=== PATIENT | female | born 1995 | race African-American/Black ===

== ENCOUNTER 2021-11-04 12:17 | Inpatient (IN) | payer MEDICAID ==
[~2021-11-04] VITALS: Ht 162.6 cm; Wt 74.4 kg
[2021-11-04] MEDS ORDERED: DEXT 5%/LR + PITOCIN 20UNITS/L 1,000 ML IV SCH (14:15)
[2021-11-04] MEDS ORDERED: CITRIC ACID/SODIUM CITRATE SOLN 30ML UDC PO SCH (14:15)
[2021-11-04] MEDS ORDERED: METHYLERGONOVINE MALEATE 0.2 MG/ML IM PRN (14:15)
[2021-11-04] MEDS ORDERED: CARBOPROST TROMETHAMINE 250 MCG/ML AMPUL IM PRN (14:15)
[2021-11-04] MEDS ORDERED: NALOXONE HCL 0.4 MG/ML 1ML VIAL IM PRN (14:15)
[2021-11-04] MEDS: LACTATED RINGERS 1,000 ML IV SCH ×2 (14:17→17:05)
[2021-11-04 14:40] LABS: CLARITY URINE CLOUDY (CLEAR); COLOR URINE YELLOW (YELLOW); KETONES URINE NEGATIVE (NEGATIVE); LEUKOCYTE ESTERASE URINE 3+ (NEGATIVE); NITRITE URINE NEGATIVE (NEGATIVE); OCCULT BLOOD URINE NEGATIVE (NEGATIVE); PH URINE 7.5 (4.5-8.0); PROTEIN URINE 1+ (NEGATIVE); SPECIFIC GRAVITY URINE 1.019 (1.005-1.030)
[2021-11-04 14:45] LABS: BASOPHILS % 0.2 % (0.0-2.0); EOSINOPHILS % 1.9 % (0.0-5.0); HEMATOCRIT. 32.3 % (36.0-48.0); HEMOGLOBIN. 10.6 g/dL (12.0-16.0); LYMPHOCYTES % 20.5 % (20.0-50.0); MEAN CORPUSCULAR HEMOGLOBIN 26.1 pg (28.0-32.0); MEAN CORPUSCULAR VOLUME 79.9 fL (81.0-99.0); MEAN PLATELET VOLUME 10.3 fl (7.4-10.4); NEUTROPHILS % 68.4 % (40.0-76.0); PLATELET 151 x1000/uL (130-400); RED BLOOD CELL COUNT 4.05 mill/uL (4.2-5.4)
[2021-11-04 15:10] LABS: PARTIAL THROMBOPLASTIN TIME 29.5 sec (23.4-31.0); PROTHROMBIN TIME 10.5 sec (9.6-11.0)
[2021-11-04 15:15] LABS: HEPATITIS B SURFACE ANTIGEN NEGATIVE
[2021-11-04 15:25] LABS: *BENZODIAZEPINES SCREEN URINE NEGATIVE (NEGATIVE); *COCAINE SCREEN URINE NEGATIVE (NEGATIVE); CANNABINOID URINE SCREEN NEGATIVE (NEGATIVE)
[2021-11-04 15:26] LABS: *AMPHETAMINES SCREEN URINE NEGATIVE (NEGATIVE); OPIATES URINE SCREEN NEGATIVE (NEGATIVE)
[2021-11-04 15:28] LABS: PHENCYCLIDINE URINE SCREEN NEGATIVE (NEGATIVE)
[2021-11-04] MEDS ORDERED: MORPHINE SULFATE/PF 1MG/ML 10ML AMP ONE (17:01)
[2021-11-04] MEDS ORDERED: KETOROLAC 60MG/2ML VIAL IM ONE (17:15)
[2021-11-04] MEDS ORDERED: CEFAZOLIN SODIUM 1000MG/VIAL ONE (17:15)
[2021-11-04] MEDS ORDERED: ONDANSETRON HCL 4MG/2ML INJ ONE (17:15)
[2021-11-04] MEDS ORDERED: DEXAMETHASONE 4MG/ML 1ML VIAL ONE (17:15)
[2021-11-04] MEDS ORDERED: EPHEDRINE SULFATE 50MG/ML VIAL ONE (17:15)
[2021-11-04] MEDS ORDERED: OXYTOCIN 10 UNITS/ML 1ML ONE ×2 (17:15→17:55)
[2021-11-04] MEDS ORDERED: NALOXONE HCL 0.4 MG/ML 1ML VIAL IV PRN (17:45)
[2021-11-04] MEDS ORDERED: PHENYLEPHRINE HCL 10 MG/ML 1ML (IV VIAL) IV ONE (17:50)
[2021-11-04 20:00] VITALS: BP 107/46
[2021-11-04] MEDS: KETOROLAC 30MG/ML VIAL IV SCH (20:26)
[2021-11-05] VITALS: BP 98/46
[2021-11-05 04:00] VITALS: BP 93/36
[2021-11-05] MEDS: KETOROLAC 30MG/ML VIAL IV SCH (04:15)
[2021-11-05 08:00] VITALS: BP 91/42
[2021-11-05] MEDS ORDERED: ONDANSETRON HCL 4MG/2ML INJ IV PRN (08:15)
[2021-11-05] MEDS ORDERED: DIPHENHYDRAMINE 25MG CAPSULE PO PRN (08:15)
[2021-11-05] MEDS ORDERED: HEMORRHOIDAL SUPP PR PRN (08:15)
[2021-11-05] MEDS ORDERED: IBUPROFEN 400MG TABLET PO PRN (08:15)
[2021-11-05] MEDS ORDERED: LANOLIN OINT 7GM TUBE TOP PRN (08:15)
[2021-11-05] MEDS ORDERED: DEXT 5%/LR + PITOCIN 20UNITS/L 1,000 ML IV SCH (08:15)
[2021-11-05 10:06] LABS: BASOPHILS % 0.1 % (0.0-2.0); EOSINOPHILS % 0.6 % (0.0-5.0); HEMATOCRIT. 27.2 % (36.0-48.0); HEMOGLOBIN. 8.9 g/dL (12.0-16.0); LYMPHOCYTES % 11.3 % (20.0-50.0); MEAN CORPUSCULAR HEMOGLOBIN 26.2 pg (28.0-32.0); MEAN CORPUSCULAR VOLUME 79.8 fL (81.0-99.0); MEAN PLATELET VOLUME 10.1 fl (7.4-10.4); MONOCYTES % 9.6 % (2.0-8.0); NEUTROPHILS % 78.4 % (40.0-76.0); PLATELET 136 x1000/uL (130-400); RED CELL DISTRIBUTION WIDTH 15.7 % (11.6-14.6)
[2021-11-05] MEDS: PRENATAL VIT/FE FUMARATE/FA TABLET PO SCH (15:10)
[2021-11-05] MEDS: IBUPROFEN 800MG TABLET PO PRN (15:10)
[2021-11-05 16:24] VITALS: BP 106/55
[2021-11-05 20:00] VITALS: BP 112/69
[2021-11-05] MEDS: MAGNESIUM/ALUMINUM HYDROXIDE/SIMETHICONE 30ML UDC PO SCH (21:28)
[2021-11-05] MEDS: DOCUSATE SODIUM 100MG CAPSULE PO SCH (21:29)
[2021-11-05] MEDS: SIMETHICONE 80MG TABLET CHEW PO SCH (21:29)
[2021-11-05] MEDS: HYDROCODONE/ACETAMINOPHEN 5/325MG TABLET PO PRN (21:29)
[2021-11-05] MEDS: BISACODYL 10MG SUPP PR PRN (21:29)
[2021-11-06 00:35] VITALS: BP 110/70
[2021-11-06] MEDS: HYDROCODONE/ACETAMINOPHEN 5/325MG TABLET PO PRN ×5 (02:02→20:15)
[2021-11-06 04:00] VITALS: BP 114/49
[2021-11-06] MEDS: MAGNESIUM/ALUMINUM HYDROXIDE/SIMETHICONE 30ML UDC PO SCH ×4 (07:30→20:15)
[2021-11-06] MEDS: SIMETHICONE 80MG TABLET CHEW PO SCH ×4 (08:00→20:15)
[2021-11-06 08:15] VITALS: BP 99/53
[2021-11-06] MEDS: FERROUS SULFATE 325MG TABLET PO SCH ×3 (09:21→17:30)
[2021-11-06] MEDS: PRENATAL VIT/FE FUMARATE/FA TABLET PO SCH (09:21)
[2021-11-06 12:13] LABS: *BARBITURATES SCREEN URINE NEGATIVE (NEGATIVE); METHADONE URINE SCREEN NEGATIVE (NEGATIVE)
[2021-11-06 16:05] VITALS: BP 109/65
[2021-11-06 20:00] VITALS: BP 114/50
[2021-11-06] MEDS: DOCUSATE SODIUM 100MG CAPSULE PO SCH (20:15)
[2021-11-06] MEDS: BISACODYL 10MG SUPP PR PRN (20:22)
[2021-11-07] VITALS: BP 112/52
[2021-11-07] MEDS: HYDROCODONE/ACETAMINOPHEN 5/325MG TABLET PO PRN ×2 (02:28→12:37)
[2021-11-07 04:05] VITALS: BP 115/63
[2021-11-07] MEDS: MAGNESIUM/ALUMINUM HYDROXIDE/SIMETHICONE 30ML UDC PO SCH ×3 (07:30→20:48)
[2021-11-07 07:37] LABS: BASOPHILS % 0.3 % (0.0-2.0); HEMATOCRIT. 28.9 % (36.0-48.0); HEMOGLOBIN. 9.7 g/dL (12.0-16.0); LYMPHOCYTES % 20.2 % (20.0-50.0); MEAN CORPUSCULAR HEMOGLOBIN 26.8 pg (28.0-32.0); MEAN CORPUSCULAR VOLUME 79.6 fL (81.0-99.0); MEAN PLATELET VOLUME 10.4 fl (7.4-10.4); MONOCYTES % 11.4 % (2.0-8.0); NEUTROPHILS % 65.1 % (40.0-76.0); PLATELET 159 x1000/uL (130-400); RED BLOOD CELL COUNT 3.63 mill/uL (4.2-5.4); RED CELL DISTRIBUTION WIDTH 15.8 % (11.6-14.6)
[2021-11-07 08:00] VITALS: BP 119/45
[2021-11-07] MEDS: SIMETHICONE 80MG TABLET CHEW PO SCH ×4 (08:00→20:48)
[2021-11-07] MEDS: PRENATAL VIT/FE FUMARATE/FA TABLET PO SCH (08:15)
[2021-11-07] MEDS: FERROUS SULFATE 325MG TABLET PO SCH ×3 (08:15→17:46)
[2021-11-07] MEDS: IBUPROFEN 800MG TABLET PO PRN ×2 (08:15→17:46)
[2021-11-07 15:30] VITALS: BP 109/45
[2021-11-07 20:00] VITALS: BP 113/49
[2021-11-07] MEDS: DOCUSATE SODIUM 100MG CAPSULE PO SCH (20:48)
[2021-11-08 03:30] VITALS: BP 114/52
[2021-11-08] MEDS ORDERED: MULT-1146 MT (03:54)
[2021-11-08] MEDS ORDERED: IBUP-2030 PO (03:54)
[2021-11-08] MEDS ORDERED: FERR-63 PO (03:54)
[2021-11-08 07:41] VITALS: BP 105/54
[2021-11-08] MEDS: SIMETHICONE 80MG TABLET CHEW PO SCH (09:14)
[2021-11-08] MEDS: FERROUS SULFATE 325MG TABLET PO SCH (09:15)
[2021-11-08] MEDS: PRENATAL VIT/FE FUMARATE/FA TABLET PO SCH (09:15)
[2021-11-08] MEDS: MAGNESIUM/ALUMINUM HYDROXIDE/SIMETHICONE 30ML UDC PO SCH (09:15)
[2021-11-08] MEDS: IBUPROFEN 800MG TABLET PO PRN (09:15)
== END 2021-11-08 13:15 | disposition home or self-care (01) | DRG 540 ==
LOC: 8 EST LDRP 12:17 → OBSVTOIN 12:18 → 8 EST LDRP 13:26 → 8EST 20:00
PROVIDERS: ADMIT Obstetrics & Gynecology; ATTEND Obstetrics & Gynecology
PROC: 10D00Z1 Extraction of Products of Conception, Low, Open Approach (ICD-10-PCS; principal; 2021-11-04)
DX: O34.211 Maternal care for low transverse scar from previous cesarean delivery (principal); Z20.822 Contact with and (suspected) exposure to COVID-19; Z37.0 Single live birth; Z3A.39 39 weeks gestation of pregnancy
CPT/HCPCS: 36415; 80305; 81003; 85025; 86592; 86593; 86703; 86762; 86780; 86850; 86900; 86920; 87340; 87426; 88307; G0378; J0690; J1100; J1885; J2274; J2370; J2405; J2590; J3490; J7120; A4315